=== PATIENT | male | born 1985 | race Caucasian/White ===

== ENCOUNTER → 2020-07-19 | Outpatient (CLI) | payer OTHER ==
--- NOTE | 2020-07-19 07:36 | MR ---
EXAMINATION TYPE: MR lumbar spine wo con DATE OF EXAM: 07/19/2020 COMPARISON: None HISTORY: Low back pain CONTRAST: 0 mL intravenous Gadavist. TECHNIQUE: Multiplanar, multisequence images of the lumbar spine were acquired. FINDINGS: L5-S1: Broad-based disc bulge is present without significant thecal sac contact. No spinal canal sten osis or neural foraminal stenosis is present. Disc desiccation is present. Disc height appears preser deb. L4-L5: No significant disc bulge or disc herniation. No spinal canal stenosis. No foraminal stenosi s. . L3-L4: No significant disc bulge or disc herniation. No spinal canal stenosis. No foraminal stenosi s. . L2-L3: Minimal disc bulge is present sagittal plane with anterior thecal sac contact. No spinal lay l stenosis. No foraminal stenosis. Disc desiccation is present. Disc height appears preserved. L1-L2: No significant disc bulge or disc herniation. No spinal canal stenosis. No foraminal stenosi s. . T12-L1: No significant disc bulge or disc herniation. No spinal canal stenosis. No foraminal stenos is. . IMPRESSION: 1. Mild disc desiccation and disc bulging at L5-S1 and to a lesser degree L2-3 without significant th ecal sac compression or cord contact
== END | disposition home or self-care (01) ==
LOC: RADMRIMAIN 06:14
PROVIDERS: ATTEND Internal Medicine
DX: M51.26 Other intervertebral disc displacement, lumbar region (principal); M51.27 Other intervertebral disc displacement, lumbosacral region
CPT/HCPCS: 72148

== ENCOUNTER 2021-10-03 21:41 | Emergency (ER) | payer OTHER ==
--- NOTE | 2021-10-03 23:31 | ED ---
URI HPI - General Chief Complaint: Upper Respiratory Infection Stated Complaint: Headache, body aches Time Seen by Provider: 10/03/21 23:25 Source: patient, RN notes reviewed Mode of arrival: ambulatory Limitations: no limitations - History of Present Illness Initial Comments: Patient has had subjective fever, body aches, mild dry cough and mild headache since yesterday. She spends most COVID-19. No shortness of breath. No chest pain. No headache, no fever or chills, no changes in vision or hearing, no sore throat or difficulty with speech, no neck pain, no chest pain or shortness of breath, no abdominal pain, no nausea or vomiting, no changes in urination or bowel movements, no numbness or tingling, no extremity pain, no skin rashes or lesions. Patient states he has family that is ill as well. Nonsmoker, no alcohol or drug abuse. MD Complaint: fever, cough Onset/Timin -: days(s) - Related Data Home Medications Medication Instructions Recorded Confirmed No Known Home Medications 05/03/16 05/03/16 Allergies Allergy/AdvReac Type Severity Reaction Status Date / Time Penicillins Allergy Unknown Verified 10/03/21 22:28 Review of Systems ROS Statement: Those systems with pertinent positive or pertinent negative responses have been documented in the HPI. ROS Other: All systems not noted in ROS Statement are negative. 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 SpO2 is normal on room air. Limitations: no limitations General appearance: alert, in no apparent distress Head exam: Present: atraumatic, normocephalic, normal inspection Eye exam: Present: normal appearance, PERRL, EOMI. Absent: scleral icterus, conjunctival injection, periorbital swelling ENT exam: Present: normal exam, mucous membranes moist Neck exam: Present: normal inspection. Absent: tenderness, meningismus, lymphadenopathy Respiratory exam: Present: normal lung sounds bilaterally. Absent: respiratory distress, wheezes, rales, rhonchi, stridor Cardiovascular Exam: Present: regular rate, normal rhythm, normal heart sounds. Absent: systolic murmur, diastolic murmur, rubs, gallop, clicks GI/Abdominal exam: Present: soft, normal bowel sounds. Absent: distended, tenderness, guarding, rebound, rigid Extremities exam: Present: normal inspection, full ROM, normal capillary refill. Absent: tenderness, pedal edema, joint swelling, calf tenderness Back exam: Present: normal inspection Neurological exam: Present: alert, oriented X3, CN II-XII intact Psychiatric exam: Present: normal affect, normal mood Skin exam: Present: warm, dry, intact, normal color. Absent: rash Course Vital Signs 10/03/21 10/03/21 10/03/21 22:22 23:00 23:38 Temperature 98.3 F 98.2 F Pulse Rate 92 91 Respiratory 18 20 18 Rate Blood Pressure 129/72 125/78 O2 Sat by Pulse 99 97 Oximetry Medical Decision Making - Medical Decision Making Patient presents to symptomology consistent with viral syndrome. Tested positive for COVID-19. Does not appear to have any secondary infection. No respiratory distress. COVID-19 conservative therapy. Discussed treatment plan, discussed quarantine measures. All questions answered. Patient voiced understanding. Patient was told to return to the ER for any signs or symptoms worsen. Told to return immediately if any other problems arise. All questions answered. Treatment plan discussed. Patient in agreement - Lab Data Lab Results 10/03/21 Range/Units 22:30 Coronavirus (PCR) Detected A (Not Detectd) Disposition Clinical Impression: COVID-19 Disposition: HOME SELF-CARE Condition: Good Instructions (If sedation given, give patient instructions): Coronavirus Disease 2019 (COVID-19) Additional Instructions: SELF QUARANTINE DISCHARGE: As you are at risk for symptoms due to coronavirus, please stay home and stay away from others as much as possible. Please maintain social distance of 6 feet if possible. You should not return to work until at least 3 days (72 hours) have passed since recovery of symptoms. This defined as resolution of fever without the use of fever reducing medicines and improvement in respiratory symptoms (e.g,, cough, shortness of breath) Isolation can end at least 5 days after symptom onset and after fever ends for 24 hours (without the use of fever-reducing medication) and symptoms are improving, if these people can continue to properly wear a well-fitted mask around others for 5 more days after the 5-day isolation period. If you're still having symptoms at the end of 5 day period, isolate for an additional 5 days. More information about what to do if you are sick can be found on the CDC website at https://www.cdc.gov/coronavirus/2019-ncov/qw-awq-xhv-sick/adooi-zber-vsgj.html Expect the symptoms to last for 7-14 days from onset. Use acetaminophen (Tylenol) as needed for discomfort. You can take a maximum of 1 gram every 6 hours for discomfort, with your total dose in 24 hours not exceeding 4 grams. Be sure to maintain hydration. Drink continuous water and/or items high in vitamin C, such as orange juice and/or lemonade. Unless you have high blood pressure, you may consider Sudafed (which is [id number]) for nasal congestion. I would suggest that a short acting Sudafed rather than the 24 hour Sudafed. For a cough you may take Mucinex or Robitussin. Also consider the use of Vicks Vapor Rub or your chest when you sleep. Use a humidifier that is cleaned frequently, in the bedroom at night. For Nausea /Vomiting/Diarrhea associated with your Illness: o Small frequent sips of room temperature liquids. o Diet: [place] [employer] - If you are still experiencing discomfort and/or nausea please slowly advancing your diet using the BRAT Diet = bananas, rice, apples/apple sauce, toast. o With diarrhea avoid any dairy for 48 hours after symptoms resolved. o Continue with activity as tolerated. If your symptoms do get worse and you believe that the upper respiratory infection has developed into something else, such as pneumonia or severe dehydration, please return to the emergency department or follow-up with your primary care. But expect to be symptomatic for the days as indicated above Is patient prescribed a controlled substance at d/c from ED?: No Referrals: Genaro Epstein [STAFF PHYSICIAN] - 10/10/21 Time of Disposition: 23:30
[2021-10-03 23:39] VITALS: BP 125/78; PULSE 91; RESP 18; TEMP 98.2
== END 2021-10-03 23:38 | disposition home or self-care (01) ==
LOC: EC 21:41
DX: U07.1 COVID-19 (principal); F12.90 Cannabis use, unspecified, uncomplicated; Z88.0 Allergy status to penicillin
CPT/HCPCS: 87635; 99284

== ENCOUNTER → 2022-09-27 | Outpatient (CLI) | payer OTHER ==
[2022-09-27 18:32] LABS: HCT 49.2 % (39.6-50.0); MCH 30.8 pg (27.0-32.0); MCHC 32.5 g/dL (32.0-37.0); MCV 94.8 fL (80.0-97.0); Mean Platelet Volume 11.1 fL (9.5-12.2); NRBC Per 100 WBC 0 /100 WBCS (0.0-0.0); Platelet Count 195 X 10*3/uL (140-440); RBC 5.19 X 10*6/uL (4.40-5.60); RDW 12.4 % (11.5-14.5); WBC 8.08 X 10*3/uL (4.50-10.00)
[2022-09-27 18:49] LABS: African American GFR (CKD) 133.2 (60.0-200.0); Albumin 4.7 g/dL (3.8-4.9); Albumin/Globulin Ratio 1.81 (1.60-3.17); Anion Gap 13.2 mmol/L (10.00-18.00); BUN/Creat Ratio 19.63 Ratio (12.00-20.00); Blood Urea Nitrogen 15.7 mg/dL (9.0-27.0); Calcium 9.8 mg/dL (8.7-10.3); Carbon Dioxide 25.8 mmol/L (20.0-27.5); Globulin 2.6 g/dL (1.6-3.3); Non-African American GFR(CKD) 114.9 (60.0-200.0); Potassium 4.5 mmol/L (3.5-5.5); T4, Free (Free Thyroxine) 0.99 ng/dL (0.800-1.800); Total Bilirubin 0.2 mg/dL (0.30-1.20); Total Protein 7.3 g/dL (6.2-8.2)
== END | disposition home or self-care (01) ==
LOC: LABWHC1 11:57
PROVIDERS: ATTEND Nurse Practitioner Acute Care
DX: E55.9 Vitamin D deficiency, unspecified (principal); E53.9 Vitamin B deficiency, unspecified; K21.9 Gastro-esophageal reflux disease without esophagitis; R20.8 Other disturbances of skin sensation
CPT/HCPCS: 36415; 80053; 82306; 82607; 84207; 84439; 84443; 84481; 85027

== ENCOUNTER → 2023-02-21 | Outpatient (CLI) | payer OTHER ==
[2023-02-21 22:26] LABS: ALT 33 U/L (4-49); AST 33 U/L (17-59); African American GFR (CKD) >90 (>60 ml/min/1.73 sqM); Albumin 4.2 g/dL (3.5-5.0); Albumin/Globulin Ratio 1.5; Alkaline Phosphatase 72 U/L (38-126); Anion Gap 8 mmol/L; Blood Urea Nitrogen 22 mg/dL (9-20); Calcium 9.1 mg/dL (8.4-10.2); Carbon Dioxide 26 mmol/L (22-30); Globulin 2.8 g/dL; Non-African American GFR(CKD) >90 (>60 ml/min/1.73 sqM); Sodium 137 mmol/L (137-145); Total Bilirubin 0.4 mg/dL (0.2-1.3)
[2023-02-21 22:43] LABS: T4, Free (Free Thyroxine) 0.96 ng/dL (0.78-2.19)
[2023-02-21 22:50] LABS: Chloride 103 mmol/L (98-107)
[2023-02-22 01:52] LABS: HCT 43.9 % (39.6-50.0); HGB 14.7 d/dL (12.0-15.0); MCH 31.6 pg (27.0-32.0); MCHC 33.5 d/dL (32.0-37.0); MCV 94.4 FL (80.0-97.0); Mean Platelet Volume 10.7 FL (9.5-12.2); NRBC Per 100 WBC 0 X 10*3/uL (0.00-0.01); Platelet Count 213 X 10*3/uL (140-440); RBC 4.65 X 10*6/uL (4.40-5.60); RDW 12.7 % (11.5-14.5); WBC 6.72 X 10*3/uL (4.50-10.00)
== END | disposition home or self-care (01) ==
LOC: LABWHC1 15:50
PROVIDERS: ATTEND Nurse Practitioner Acute Care
DX: E55.9 Vitamin D deficiency, unspecified (principal); E53.9 Vitamin B deficiency, unspecified; K21.9 Gastro-esophageal reflux disease without esophagitis; R20.8 Other disturbances of skin sensation
CPT/HCPCS: 36415; 80053; 82306; 82607; 84439; 84443; 84480; 85027

== ENCOUNTER → 2023-02-26 | Outpatient (CLI) | payer OTHER | END | disposition home or self-care (01) | LOC: LABWHC1 07:19 | PROVIDERS: ATTEND Nurse Practitioner Acute Care | DX: E55.9 Vitamin D deficiency, unspecified (principal); K21.9 Gastro-esophageal reflux disease without esophagitis; E53.9 Vitamin B deficiency, unspecified; R20.9 Unspecified disturbances of skin sensation | CPT/HCPCS: 36415; 84207 ==

== ENCOUNTER 2023-11-12 08:23 | Emergency (ER) | payer OTHER ==
--- NOTE | 2023-11-12 08:49 | ED ---
Abdominal Pain HPI - General Chief Complaint: Abdominal Pain Stated Complaint: abd pain Time Seen by Provider: 11/12/23 08:25 Source: patient, RN notes reviewed Mode of arrival: ambulatory Limitations: no limitations - History of Present Illness Initial Comments: 37-year-old male presents emergency department with chief complaint of abdominal pain. Patient states he ate potato and pork the other day states that he started vomiting later on he states that he still having pain feels like something stuck in his stomach. Patient states that he vomited again of recent and states that he still had potato in his emesis. Patient denies any prior abdominal surgeries he states he is passing gas normally denies any current heartburn which she states she has had heartburn in the past. He tried some Pepto-Bismol with no relief of symptoms. Patient denies any dysuria denies fevers. - Related Data Previous Rx's Medication Instructions Recorded dexAMETHasone [Decadron] 6 mg PO DAILY #5 tablet 10/06/21 Omeprazole [PriLOSEC] 40 mg PO DAILY #30 cap 11/12/23 Allergies Allergy/AdvReac Type Severity Reaction Status Date / Time Penicillins Allergy Unknown Verified 11/12/23 08:30 Review of Systems ROS Statement: Those systems with pertinent positive or pertinent negative responses have been documented in the HPI. ROS Other: All systems not noted in ROS Statement are negative. Past Medical History Additional Past Medical History / Comment(s): ear tumor 2004 History of Any Multi-Drug Resistant Organisms: None Reported Past Surgical History: Ear Surgery Past Psychological History: No Psychological Hx Reported Smoking Status: Current every day smoker Past Alcohol Use History: None Reported Past Drug Use History: Marijuana General Exam Limitations: no limitations General appearance: alert, in no apparent distress Head exam: Present: atraumatic, normocephalic, normal inspection Eye exam: Present: normal appearance, PERRL, EOMI. Absent: scleral icterus, conjunctival injection, periorbital swelling ENT exam: Present: normal exam, normal oropharynx, mucous membranes moist Neck exam: Present: normal inspection, full ROM. Absent: tenderness, meningismus, lymphadenopathy Respiratory exam: Present: normal lung sounds bilaterally. Absent: respiratory distress, wheezes, rales, rhonchi, stridor Cardiovascular Exam: Present: regular rate, normal rhythm, normal heart sounds. Absent: systolic murmur, diastolic murmur, rubs, gallop, clicks GI/Abdominal exam: Present: soft, tenderness, normal bowel sounds. Absent: distended, guarding, rebound, rigid Neurological exam: Present: alert, oriented X3, CN II-XII intact, reflexes normal. Absent: motor sensory deficit Skin exam: Present: warm, dry, intact, normal color. Absent: rash Course Vital Signs 11/12/23 08:26 Temperature 98 F Pulse Rate 80 Respiratory 18 Rate Blood Pressure 126/78 O2 Sat by Pulse 98 Oximetry Medical Decision Making - Medical Decision Making Was pt. sent in by a medical professional or institution (, PA, MANAGER IT TRAINING, urgent care, hospital, or fdc...) When possible be specific @ -No Did you speak to anyone other than the patient for history (EMS, parent, family, police, friend...)? What history was obtained from this source @ -No Did you review nursing and triage notes (agree or disagree)? Why? @ -I reviewed and agree with nursing and triage notes Were old charts reviewed (outside hosp., previous admission, EMS record, old EKG, old radiological studies, urgent care reports/EKG's, fdc records)? Report findings @ -No old charts were reviewed Differential Diagnosis (chest pain, altered mental status, abdominal pain women, abdominal pain men, vaginal bleeding, weakness, fever, dyspnea, syncope, headache, dizziness, GI bleed, back pain, seizure, CVA, palpatations, mental health, musculoskeletal)? @ -[Differential Abdominal Pain Men: Appendicitis, cholecystitis, diverticulosis, ischemic bowel, pancreatitis, hepatitis, UTI, gastroenteritis, AAA, incarcerated hernia, bowel obstruction, co nstipation, inflammatory bowel, hepatitis, peptic ulcer disease, splenic infarction, perforated viscus, testicular torsion, this is not meant to be an all-inclusive list EKG interpreted by me (3pts min.). @ -None X-rays interpreted by me (1pt min.). @ -None done CT interpreted by me (1pt min.). @ -CT abdomen pelvis showing inflammatory changes around the stomach consistent with gastritis or underlying peptic ulcer disease U/S interpreted by me (1pt. min.). @ -None done What testing was considered but not performed or refused? (CT, X-rays, U/S, labs)? Why? @ -None What meds were considered but not given or refused? Why? @ -None Did you discuss the management of the patient with other professionals (professionals i.e. , PA, MANAGER IT TRAINING, lab, RT, psych nurse, mental health social worker, miscellaneous machine operator, teacher, precinct commanding officer, community case manager)? Give summary @ -No Was smoking cessation discussed for >3mins.? @ -No Was critical care preformed (if so, how long)? @ -No Were there social determinants of health that impacted care today? How? (Homelessness, low income, unemployed, alcoholism, drug addiction, transportatio n, low edu. Level, literacy, decrease access to med. care, senior care, rehab)? @ -No Was there de-escalation of care discussed even if they declined (Discuss DNR or withdrawal of care, Hospice)? DNR status @ -No What co-morbidities impacted this encounter? (DM, HTN, Smoking, COPD, CAD, Cancer, CVA, ARF, Chemo, Hep., AIDS, mental health diagnosis, sleep apnea, morbid obesity)? @ -None Was patient admitted / discharged? Hospital course, mention meds given and route, prescriptions, significant lab abnormalities, going to OR and other pertinent info. @ -Discharge patient has evidence of gastritis, peptic ulcer disease he will follow-up with GI for EGD patient was given Protonix was started on omeprazole daily we discussed dietary changes and return parameters. Undiagnosed new problem with uncertain prognosis? @ -No Drug Therapy requiring intensive monitoring for toxicity (Heparin, Nitro, Insulin, Cardizem)? @ -No Were any procedures done? @ -No Diagnosis/symptom? @ -Abdominal pain, gastritis Acute, or Chronic, or Acute on Chronic? @ -Acute Uncomplicated (without systemic symptoms) or Complicated (systemic symptoms)? @ -Uncomplicated Side effects of treatment? @ -No Exacerbation, Progression, or Severe Exacerbation? @ -No Poses a threat to life or bodily function? How? (Chest pain, [place], [place], pneumonia, PE, COPD, DKA, ARF, appy, cholecystitis, CVA, Diverticulitis, Homicidal, Suicidal, threat to staff... and all critical care pts) @ -No - Lab Data Result diagrams: 11/12/23 08:48 11/12/23 08:48 Lab Results 11/12/23 11/12/23 11/12/23 Range/Units 08:48 08:48 08:48 WBC 10.8 H (3.8-10.6) k/uL RBC 5.03 (4.30-5.90) m/uL Hgb 16.3 (13.0-17.5) gm/dL Hct 45.3 (39.0-53.0) % MCV 90.1 (80.0-100.0) fL MCH 32.3 (25.0-35.0) pg MCHC 35.9 (31.0-37.0) g/dL RDW 12.2 (11.5-15.5) % Plt Count 187 (150-450) k/uL MPV 8.2 Neutrophils % 68 % Lymphocytes % 24 % Monocytes % 5 % Eosinophils % 1 % Basophils % 1 % Neutrophils # 7.4 (1.3-7.7) k/uL Lymphocytes # 2.6 (1.0-4.8) k/uL Monocytes # 0.6 (0-1.0) k/uL Eosinophils # 0.1 (0-0.7) k/uL Basophils # 0.1 (0-0.2) k/uL Sodium 139 (137-145) mmol/L Potassium 3.8 (3.5-5.1) mmol/L Chloride 105 (98-107) mmol/L Carbon Dioxide 24 (22-30) mmol/L Anion Gap 10 mmol/L BUN 14 (9-20) mg/dL Creatinine 0.87 (0.66-1.25) mg/dL Est GFR (CKD-EPI)AfAm >90 (>60 ml/min/1.73 sqM) Est GFR (CKD-EPI)NonAf >90 (>60 ml/min/1.73 sqM) Glucose 100 H (74-99) mg/dL Plasma Lactic Acid Baljinder (0.7-2.0) mmol/L Calcium 9.7 (8.4-10.2) mg/dL Total Bilirubin 0.7 (0.2-1.3) mg/dL AST 34 (17-59) U/L ALT 49 (4-49) U/L Alkaline Phosphatase 91 (38-126) U/L Total Protein 7.6 (6.3-8.2) g/dL Albumin 4.6 (3.5-5.0) g/dL Lipase 102 (23-300) U/L Urine Color Light Yellow Urine Appearance Clear (Clear) Urine pH 7.5 (5.0-8.0) Ur Specific [place] 1.016 (1.001-1.035) Urine Protein Negative (Negative) Urine Glucose (UA) Negative (Negative) Urine Ketones Negative (Negative) Urine Blood Negative (Negative) Urine Nitrite Negative (Negative) Urine Bilirubin Negative (Negative) Urine Urobilinogen <2.0 (<2.0) mg/dL Ur Leukocyte Esterase Negative (Negative) 11/12/23 Range/Units 08:48 WBC (3.8-10.6) k/uL RBC (4.30-5.90) m/uL Hgb (13.0-17.5) gm/dL Hct (39.0-53.0) % MCV (80.0-100.0) fL MCH (25.0-35.0) pg MCHC (31.0-37.0) g/dL RDW (11.5-15.5) % Plt Count (150-450) k/uL MPV Neutrophils % % Lymphocytes % % Monocytes % % Eosinophils % % Basophils % % Neutrophils # (1.3-7.7) k/uL Lymphocytes # (1.0-4.8) k/uL Monocytes # (0-1.0) k/uL Eosinophils # (0-0.7) k/uL Basophils # (0-0.2) k/uL Sodium (137-145) mmol/L Potassium (3.5-5.1) mmol/L Chloride (98-107) mmol/L Carbon Dioxide (22-30) mmol/L Anion Gap mmol/L BUN (9-20) mg/dL Creatinine (0.66-1.25) mg/dL Est GFR (CKD-EPI)AfAm (>60 ml/min/1.73 sqM) Est GFR (CKD-EPI)NonAf (>60 ml/min/1.73 sqM) Glucose (74-99) mg/dL Plasma Lactic Acid Baljinder 0.7 (0.7-2.0) mmol/L Calcium (8.4-10.2) mg/dL Total Bilirubin (0.2-1.3) mg/dL AST (17-59) U/L ALT (4-49) U/L Alkaline Phosphatase (38-126) U/L Total Protein (6.3-8.2) g/dL Albumin (3.5-5.0) g/dL Lipase (23-300) U/L Urine Color Urine Appearance (Clear) Urine pH (5.0-8.0) Ur Specific [place] (1.001-1.035) Urine Protein (Negative) Urine Glucose (UA) (Negative) Urine Ketones (Negative) Urine Blood (Negative) Urine Nitrite (Negative) Urine Bilirubin (Negative) Urine Urobilinogen (<2.0) mg/dL Ur Leukocyte Esterase (Negative) Disposition Clinical Impression: Abdominal pain, Gastritis Disposition: HOME SELF-CARE Condition: Stable Instructions (If sedation given, give patient instructions): Gastritis (ED), Diet for Stomach Ulcers and Gastritis (ED) Additional Instructions: Please return to the Emergency Department if symptoms worsen or any other concerns. Prescriptions: Omeprazole [PriLOSEC] 40 mg PO DAILY #30 cap Is patient prescribed a controlled substance at d/c from ED?: No Referrals: Josue Rios MD [Primary Care Provider] - 1-2 days January Reyes MD [STAFF PHYSICIAN] - 1-2 days Radha Dao MD [STAFF PHYSICIAN] - 1-2 days Time of Disposition: 10:24
[2023-11-12] MEDS: METOCLOPRAMIDE 5 MG/ML 2 ML VIAL IVP STA (08:56)
[2023-11-12] MEDS: SODIUM CHLORIDE 0.9% 1,000 ML IV STA (08:57)
[2023-11-12] MEDS: SODIUM CHLORIDE 0.9% 500 ML 500 ML IV STA (08:58)
[2023-11-12] MEDS: MAG HYDROX/AL HYDROX/SIMETH 30 ML, HYOSCYAMINE ELIXIR 10 ML PO STA (08:59)
[2023-11-12 09:00] VITALS: BP 126/78; PULSE 80; RESP 18; TEMP 98
[2023-11-12 09:10] LABS: ALT 49 U/L (4-49); AST 34 U/L (17-59); African American GFR (CKD) >90 (>60 ml/min/1.73 sqM); Albumin 4.6 g/dL (3.5-5.0); Alkaline Phosphatase 91 U/L (38-126); Anion Gap 10 mmol/L; Blood Urea Nitrogen 14 mg/dL (9-20); Calcium 9.7 mg/dL (8.4-10.2); Carbon Dioxide 24 mmol/L (22-30); Chloride 105 mmol/L (98-107); Glucose 100 mg/dL (74-99); Lipase 102 U/L (23-300); Non-African American GFR(CKD) >90 (>60 ml/min/1.73 sqM); Potassium 3.8 mmol/L (3.5-5.1); Sodium 139 mmol/L (137-145); Total Bilirubin 0.7 mg/dL (0.2-1.3); Total Protein 7.6 g/dL (6.3-8.2)
[2023-11-12 09:25] LABS: Basophils # (A) 0.1 k/uL (0-0.2); Basophils % (A) 1 %; Eosinophils # (A) 0.1 k/uL (0-0.7); Eosinophils % (A) 1 %; HCT 45.3 % (39.0-53.0); HGB 16.3 gm/dL (13.0-17.5); Lymphocytes # (A) 2.6 k/uL (1.0-4.8); Lymphocytes % (A) 24 %; MCH 32.3 pg (25.0-35.0); MCHC 35.9 g/dL (31.0-37.0); MCV 90.1 fL (80.0-100.0); Mean Platelet Volume 8.2; Monocytes # (A) 0.6 k/uL (0-1.0); Monocytes % (A) 5 %; Neutrophils # (A) 7.4 k/uL (1.3-7.7); Neutrophils % (A) 68 %; Platelet Count 187 k/uL (150-450); RBC 5.03 m/uL (4.30-5.90); RDW 12.2 % (11.5-15.5); WBC 10.8 k/uL (3.8-10.6)
--- NOTE | 2023-11-12 09:33 | CT ---
EXAMINATION TYPE: CT abdomen pelvis wo con DATE OF EXAM: 11/12/2023 COMPARISON: None HISTORY: 37-year-old male nausea/vomiting that started 4 days ago with LUQ abd pain. CT DLP: 706.9 mGycm. Automated exposure control for dose reduction was used. TECHNIQUE: Contiguous axial scanning of the abdomen and pelvis without IV contrast. Coronal and sagit stanislaw reconstructions performed. FINDINGS: LUNG BASES: No significant abnormality is appreciated. LIVER/GB: No significant abnormality is appreciated. PANCREAS: No significant abnormality is seen. SPLEEN: No significant abnormality is seen. ADRENALS: No significant abnormality is seen. KIDNEYS: No significant abnormality is seen. LYMPH NODES: No significant abnormality is seen. BOWEL: There may be circumferential thickening at the gastric antrum, coronal image 31 and axial imag e 30. Questionable mild perigastric fat stranding along the posterior margin here, coronal image 42. Probable ingested fluid and debris within the stomach. Mild scattered diverticular change along the l eft-sided colon. Minimal scattered stool. There seems to be some scattered retained oral contrast mat erial as well within the colon. Correlate for any recent radiology exam. No pericolonic inflammatory change. PELVIS: Bladder not distended. A couple phleboliths in the right side of the pelvis. No abnormal flui d collection in the pelvis or pelvic lymphadenopathy. OTHER: No significant abnormality is seen. BONES: No significant abnormality is seen. IMPRESSION: 1. There may be mild circumferential wall thickening at the gastric antrum. Questionable minimal per igastric fat stranding along the posterior margin here. Correlate for the possibility of gastritis or peptic ulcer disease. Direct visualization as indicated. 2. Correlate for any recent outside radiology exam where oral contrast was administered. Mild scatte red retained oral contrast material remains throughout the colon. 3. Mild left colonic diverticulosis without evidence for acute diverticulitis.
[2023-11-12 09:58] LABS: Appearance,Urine Clear (Clear); Bilirubin,Urine Negative (Negative); Blood,Urine Negative (Negative); Color,Urine Light Yellow; Glucose,Urine (UA) Negative (Negative); Ketones,Urine Negative (Negative); Leukocyte Esterase,Urine Negative (Negative); Nitrite,Urine Negative (Negative); PH, Urine 7.5 (5.0-8.0); Protein,Urine Negative (Negative); Specific Gravity,Urine 1.016 (1.001-1.035); Urobilinogen,Urine <2.0 mg/dL (<2.0)
[2023-11-12] MEDS: PANTOPRAZOLE 40 MG/10 ML VIAL IVP STA (10:34)
== END 2023-11-12 10:39 | disposition home or self-care (01) ==
LOC: EC 08:23
DX: K29.70 Gastritis, unspecified, without bleeding (principal); K57.30 Diverticulosis of large intestine without perforation or abscess without bleeding; F17.200 Nicotine dependence, unspecified, uncomplicated; Z88.0 Allergy status to penicillin
CPT/HCPCS: 36415; 80053; 83605; 83690; 85025; 81003; 74176; 99284; 96374; 96361; C9113